=== PATIENT | male | born 1980 | race Caucasian/White ===

== ENCOUNTER 2018-12-14 08:09 | Emergency (ER) | payer BC ==
[2018-12-14 08:56] VITALS: BP 120/76
[2018-12-14] MEDS ORDERED: Tetan/Diph/Pertus SYR(Tdap)* 0.5 ML SYR(BOOSTRIX) use SYR IM ONE (09:26)
[2018-12-14] MEDS ORDERED: Lidocaine 1% MPF ** 5 ML VIAL INJ ONE (09:26)
--- NOTE | 2018-12-14 09:33 | UC ---
GI Bleed HPI - HPI Summary HPI Summary: LAST PM, PT ALMOST FELL AND GRABBED A STREET SIGN TO BREAK THE FALL. THE SIGN CUT HIS L HAND. HE CLEANED IT WITH PEROXIDE AND ALCOHOL THEN CLOSED IT WITH OTC SKIN GLUE AND A STERI STRIP. THIS AM, THE WOUND POPPED OPEN AGAIN. HE DENIES FB SENSATION, LIMITED ROM AND BONE PAIN. LAST TETANUS IS NOT KNOW. - History Of Current Complaint Chief Complaint: UCWounds Stated Complaint: LEFT HAND LACERATION Time Seen by Provider: 12/14/18 09:07 Hx Obtained From: Patient Onset/Duration: Sudden Onset Timing: Constant Pain Intensity: 2 Aggravating Factor(s): Other - NOTHING Associated Signs And Symptoms: Positive: Other - NO REDNESS OR DRAINAGE. - Allergies/Home medications Allergies/Adverse Reactions: Allergies Allergy/AdvReac Type Severity Reaction Status Date / Time No Known Allergies Allergy Verified 12/14/18 08:56 Home Medications: Home Medications Chlorpheniramine Maleate TAB* [Chlortrimeton TAB*] 4 mg PO Q4H PRN 12/14/18 [ History Confirmed 12/14/18] PMH/Surg Hx/FS Hx/Imm Hx Previously Healthy: Yes - Surgical History Surgical History: None - Family History Known Family History: Positive: Non-Contributory - Social History Alcohol Use: Occasionally Substance Use Type: Marijuana Substance Use Comment - Amount & Last Used: month ago Smoking Status (MU): Never Smoked Tobacco - Immunization History Most Recent Tetanus Shot: pt cannot recall Review of Systems All Other Systems Reviewed And Are Negative: No Constitutional: Negative: Fever Skin: Negative: Rash Musculoskeletal: Negative: Arthralgia, Decreased ROM Neurological: Negative: Weakness, Paresthesia Physical Exam Triage Information Reviewed: Yes Appearance: Well-Appearing Vital Signs: Initial Vital Signs Temp 98.0 F 12/14/18 08:49 Pulse 90 12/14/18 08:49 Resp 18 12/14/18 08:49 BP 120/76 12/14/18 08:49 Pulse Ox 100 12/14/18 08:49 Vital Signs Reviewed: Yes Eyes: Positive: Conjunctiva Clear Respiratory: Positive: No respiratory distress Cardiovascular: Positive: RRR Musculoskeletal: Positive: Other: - L HAND: 3CM LACERATION IN WEB BETWEEN THUMB AND INDEX FINGER. DRY OTC GLUE AROUND SITE. NO ERYTHEMA, SWELLING OR DRAINAGE. HAND HAS FULL S/V/M FUNCTION. NO FB'S SEEN. Neurological: Positive: Alert Psychological: Positive: Age Appropriate Behavior Skin Exam: Normal Skin: Negative: Rashes Bleed Course/Dx - Course Course Of Treatment: PROCEDURE: SITE SOAKED IN WARM SOAPY WATER AND GLUE PEELED OFF. TIME OUT DONE. AREA PREP BETADINE AND LOCAL WITH 1% LIDOCAINE. WOUND EXPLORED. NO FB'S ON TENDON INJURY. IRRIGATED WITH 500ML STERILE NACL UNDER PRESSURE. PREP BETADINE AND DRAPED. CLOSED WITH 5-0 NYLON AND 2 HORZINTAL MATTRESS AND 1 SIMPLE STITCH. STERILE TECHNIQUE USED. PT TOLERATED WELL.. DRESSING APPLIED BY NURSING. LENGTH 3CM. - Differential Dx/Diagnosis Provider Diagnosis: Laceration of left hand Discharge - Sign-Out/Discharge Documenting (check all that apply): Patient Departure All imaging exams completed and their final reports reviewed: No Studies - Discharge Plan Condition: Stable Disposition: HOME Prescriptions: Cephalexin CAP* [Keflex CAP*] 500 mg PO TID 7 Days #21 cap Patient Education Materials: Care For Your Stitches (DC) Referrals: Hugo Santiago NP [Primary Care Provider] - Additional Instructions: RETURN HERE OR TO PRIMARY CARE IN 7-10 DAYS FOR SUTURE REMOVAL. FOLLOW UP SOONER FOR ANY CONCERNS. - Billing Disposition and Condition Condition: STABLE Disposition: Home - Attestation Statements Provider Attestation: Per institutional requirements, I have reviewed the chart, however, I was not consulted specifically or made aware of this patient by the midlevel provider. I did not personally evaluate, interact with , or disposition this patient.
== END 2018-12-14 10:24 | disposition home or self-care (01) ==
LOC: UCCORT 08:09
DX: S61.412A Laceration without foreign body of left hand, initial encounter (principal); W26.8XXA Contact with other sharp object(s), not elsewhere classified, initial encounter; Y93.89 Activity, other specified; Y92.410 Unspecified street and highway as the place of occurrence of the external cause
CPT/HCPCS: 12002; 90471; 90715; 99212; G0463